=== PATIENT | male | born 1965 | race Caucasian/White ===

== ENCOUNTER → 2018-05-16 10:51 | Outpatient (REF) | payer BC, SELFPAY ==
[2018-05-16 20:31] LABS: HCT 47.4 % (40.0-50.0); HGB 15.6 g/dL (13.5-17.5)
[2018-05-16 20:46] LABS: ALT 42 U/L (12-78); AST 25 U/L (15-37); Albumin 4.5 g/dL (3.4-5.0); Alkaline Phosphatase 50 U/L (46-116); Anion Gap 7.2 mmol/L (3-11); BUN 8 mg/dL (7-18); Bilirubin, Total 1.2 mg/dL (0.2-1.0); CO2 28.8 mmol/L (21.0-32.0); Calcium 9.2 mg/dL (8.5-10.1); Chloride 104 mmol/L (98-107); Cholesterol 191 mg/dL (50-200); Glucose 92 mg/dL (70-100); HDL Cholesterol 43 mg/dL (40-60); LDL CHOLESTEROL 115 mg/dL (<100); Potassium 4.8 mmol/L (3.5-5.1); Sodium 140 mmol/L (136-145); TSH (W/Ref FT4) 0.48 uIU/mL (0.358-3.74); Total Protein 7.3 g/dL (6.4-8.2); Triglyceride 249 mg/dL (30-150)
== END ==
LOC: NCHCN 10:51
PROVIDERS: PCP Family Medicine; Visit Provider Family Medicine
DX: D64.9 Anemia, unspecified (principal); E78.5 Hyperlipidemia, unspecified; I10 Essential (primary) hypertension; E03.9 Hypothyroidism, unspecified
CPT/HCPCS: 80053; 80061; 83721; 84443; 85014; 85018

== ENCOUNTER 2018-07-27 10:43 | Emergency (ER) | payer BC, SELFPAY ==
[2018-07-27 11:02] VITALS: BP 141/98; PULSE 63; RESP 18; TEMP 36.6; O2SAT 99
[2018-07-27 11:09] VITALS: BP 141/98; PULSE 66; RESP 16; TEMP 36.6; O2SAT 99
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
[2018-07-27 11:48] LABS: Bilirubin Negative (Negative); Blood Negative (Negative); Clarity Clear; Glucose Negative (Negative); Ketones Negative (Negative); Leukocyte Esterase Negative (Negative); Nitrite Negative (Negative); Urobilinogen 0.2 EU/dL (Up TO 0.2)
[2018-07-27] MEDS: Normal Saline 1,000 ML 1000 ML IV (12:00)
[2018-07-27 12:11] LABS: Abs Immature Grans 0.01 k/cumm (0.0-0.09); Absolute Basophil Count 0.02 k/cumm (0.0-0.2); Absolute Eosinophil Count 0.06 k/cumm (0.0-0.7); Absolute Lymphocyte Count 1.34 k/cumm (1.2-3.4); Absolute Monocyte Count 0.32 k/cumm (0.11-0.7); Absolute Neutrophil Count 3.95 k/cumm (1.2-6.7); Basophils % 0.4; Eosinophils % 1.1; HCT 46.8 % (40.0-50.0); HGB 15.7 g/dL (13.5-17.5); Immature Grans % 0.2; Lymphocytes % 23.5; Mean Corp. HGB Concentration 33.5 g/dL (32.0-36.0); Mean Corpuscular Hemoglobin 30.8 pg (27.0-33.0); Mean Corpuscular Volume 91.8 fL (80-95); Mean Platelet Volume 11.5 fL (8.0-11.0); Monocytes % 5.6; Neutrophils % 69.2; Platelet Count 181 x1000/uL (130-400); RBC Distribution Width 12.8 % (11.8-14.1)
[2018-07-27 12:23] LABS: ALT 54 U/L (12-78); AST 25 U/L (15-37); Albumin 4.4 g/dL (3.4-5.0); Alkaline Phosphatase 49 U/L (46-116); Anion Gap 11.7 mmol/L (3-11); BUN 10 mg/dL (7-18); Bilirubin, Total 1.3 mg/dL (0.2-1.0); CO2 26.3 mmol/L (21.0-32.0); CREATININE 1.06 mg/dL (0.70-1.30); Calcium 9.3 mg/dL (8.5-10.1); Chloride 101 mmol/L (98-107); Glucose 89 mg/dL (70-100); Lipase 131 U/L (73-393); Potassium 3.7 mmol/L (3.5-5.1); Sodium 139 mmol/L (136-145); Total Protein 7.3 g/dL (6.4-8.2)
[2018-07-27] MEDS: Omnipaque 350 MG/ML 100 ML BTL IJ (13:02)
--- NOTE | 2018-07-27 13:03 | DI.CT_ITS ---
SYMPTOM/DIAGNOSIS: ABD PAIN ABDOMEN AND PELVIC CT: CT examination of the abdomen and pelvis was performed with a bolus infusion of 100 cc's of Omnipaque 350. Images obtained through the lung bases are unremarkable. The liver and spleen are unremarkable in appearance. No pancreatic abnormality is seen. Gallbladder and bile ducts are CT normal. Adrenals and kidneys appear normal. No evidence of urinary tract calcification or obstruction. No significant abdominal wall hernia is seen. No abdominal or pelvic adenopathy is seen. Appendix appears normal. No evidence of diverticulitis or bowel obstruction. Abdominal aorta is of normal diameter and no major vascular abnormality is seen. Note is made of surgical clips in the pelvis on the right. CONCLUSION: No evidence of acute process.
[2018-07-27 13:54] VITALS: BP 142/93; PULSE 71; RESP 15; TEMP 37; O2SAT 99
== END 2018-07-27 13:55 | disposition home or self-care (01) ==
PROVIDERS: Emergency Provider Physician Assistant; PCP Family Medicine
DX: R10.9 Unspecified abdominal pain (principal); I48.91 Unspecified atrial fibrillation
CPT/HCPCS: 36415; 80053; 83690; 93005; 96360; 99285; 74177; 81003; 85025; 93010; J3490

== ENCOUNTER 2018-08-07 07:34 | Day surgery (SDC) | payer BC, SELFPAY ==
[2018-08-07] VITALS (7 sets, daily range): BP systolic 101–149; BP diastolic 57–102; PULSE 73–96; RESP 11–18; TEMP 36.2–36.7; O2SAT 94–99
--- NOTE | 2018-08-07 07:48 | W.ED.GENAD ---
Discharge Plan Disposition Condition: Good Discharge Details Chief Complaint: Abd Prob Reason For Visit: Incarcerated Left Inguinal hernia Attending Provider: Mehran Lewis Primary Care Provider: China Kim V ED Provider: Aida Saldivar Discharge Instructions Activity:: see instructions Remove Dressings/Wound Care:: 24 hours Shower/Bathe:: 24 hours Diet:: As Tolerated Discharge Orders Discharge Orders: Discharge Order (Routine); Ordered 08/07/18 Ordered By: Mehran Lewis Discharge Data Discharge Date/Time-TO BE ENTERED AT DEPARTURE: 08/07/18 08:55 Medical Decision Making Ulisses Balderrama is a 53 y/o man with h/o HTN, hypothyroidism, afib presenting to the emergency department with one month of suprapubic pain, now left groin pain with associated bulge intermittently in the left groin over the past few days. On exam Pt is very well and non-toxic appearing. Abd exam is benign without TTP. No hernia appreciated, no TTP of groin. Pt took picture of groin bulge last night on his phone, which he showed to me. Concern for likely hernia, now reduced, unclear if this is etiology of constipation at this time. Exam/hx not c/w acute life threatening process. Plan for surgery consult for hernia, possible outpt colonoscopy. Will send screening labs. Dr. Lewis at bedside, he has concern for possible incarcerated hernia and plans to take Pt to OR. He requests lactate. Clinical Impression: hernia, constipation Disposition: [facility] inpatient Medical Records Medical records reviewed: Yes I reviewed the patient's medical records. Lab Data Lab results reviewed: Yes I reviewed the patient's lab results. HPI General Mode of arrival: ambulatory. Date/Time Provider Initiated Documentation: 08/07/18 07:48. Limitations to Documentation: no limitations. Information obtained by: patient, RN notes reviewed and old records reviewed. HPI Narrative: Ulisses Balderrama is a 53 y/o man with h/o HTN, hypothyroidism, afib presenting to the emergency department with suprapubic pain. Pt reports he has been having this pain for one month. Over that same period has also had new constipation and change in the caliber of his stools, which are now very thin in diameter. He was seen here in the ED for this 07/27/18, where he had negative CT a/p. He also saw Dr. Lewis as outpt in f/u for ED visit, during which source of his symptoms was thought to be at least partially related to prostate enlargement, and he was started on tamulosin. Pt reports that over the past few days pain has become more localized to left groin, and he has also now noticed an intermittent bulge in that area. Pt reports bulge was worse last night, improved this am. He reports that his constipation has not improved despite taking miralax and metamucil. He states that otherwise he feels in his usual state of health. He denies other pain, SOB, cough, nausea or vomiting, dysuria, testicular pain/swelling, fever. Has been eating and drinking as usual. No recent illness. Related Data Home Medications Medication Instructions Recorded Confirmed aspirin [Aspir-81] 81 mg PO DAILY tab-cap 07/05/14 08/07/18 losartan 50 mg PO DAILY 08/05/14 08/07/18 verapamil 400 mg PO DAILY 08/05/14 08/07/18 levothyroxine 200 mcg PO DAILY 07/27/18 08/07/18 rosuvastatin 5 mg PO DAILY 07/27/18 08/07/18 tamsulosin 0.4 mg capsule 0.4 mg PO DAILY #30 cap 08/02/18 08/07/18 acetaminophen [Tylenol] 650 mg PO Q4H PRN PRN #30 tab 08/07/18 ibuprofen [Advil] 600 mg PO Q6H PRN PRN #30 tab 08/07/18 tramadol 50 mg PO Q6H PRN PRN #15 tab 08/07/18 Previous Rx's Medication Instructions Recorded tamsulosin 0.4 mg capsule 0.4 mg PO DAILY #30 cap 08/02/18 acetaminophen [Tylenol] 650 mg PO Q4H PRN PRN #30 tab 08/07/18 ibuprofen [Advil] 600 mg PO Q6H PRN PRN #30 tab 08/07/18 tramadol 50 mg PO Q6H PRN PRN #15 tab 08/07/18 Allergies Allergy/AdvReac Type Severity Reaction Status Date / Time No Known Allergies Allergy Verified 08/02/18 09:04 General Stated Complaint: Abd Prob JENNIFER: 3 Review of Systems Review of Systems Constitutional: denies fevers Eyes: denies eye pain ENT: denies facial pain, dental pain, sore throat Cardiovascular: denies chest pain, edema Respiratory: denies SOB, cough GI: reports lower abdominal pain, constipation, denies vomiting, diarrhea : denies flank pain, denies dysuria MSK: denies back pain, neck pain, arthralgias, myalgias Skin: denies rash Neuro: denies headaches, lightheadedness, weakness PFSH Family History Mother Heart disease COPD (chronic obstructive pulmonary disease) Father Personal history of malignant neoplasm Heart disease Sister Arthritis Hyperlipidemia Brother Atrial fibrillation Asthma Brother Hypothyroidism Medical History Atrial fibrillation Hypertension Hypothyroidism Migraine Social History Smoking/Tobacco Use Status: Never alcohol intake: current alcohol intake frequency: holidays/special occasions only Alcohol type: beer and wine substance use type: does not use Surgical History Laparotomy Pelvic vasculature coiling Exam Narrative Exam Narrative: Constitutional: well and [id number], pleasant, conversing normally HENT: head atraumatic, normocephalic normal inspection, mucous membranes moist Eyes: conjunctiva normal, sclera normal, pupils 3mm b/l Neck: no stridor, normal ROM, trachea midline Chest: normal inspection Resp: normal work of breathing, LCTAB Cardio: normal rate, normal rhythm, no murmur appreciated GI: abdomen soft, non-tender, non-distended. no hernia appreciated in supine or standing position. left inguinal NTTP. No overlying skin changes. Pt does note sudden sharp pain with standing that resolves with lying flat. : normal penis, testicles NTTP without edema or skin changes, no inguinal LAD Back: normal inspection, no rash Skin: warm, dry, normal color, no rash Neuro: alert, not altered, grossly non-focal, normal tone Ext: no edema Psych: normal mood, normal affect, normal behavior Course Vital Signs Temperature 36.7 C 08/07/18 07:41 Pulse 76 08/07/18 07:41 Respiratory Rate 18 08/07/18 07:41 Blood Pressure 149/102 H 08/07/18 07:41 Pulse Oximetry 99 08/07/18 07:41 Temperature 36.7 C 08/07/18 07:41 Temperature Source Temporal Artery Scan 08/07/18 07:41 Pulse 76 08/07/18 07:41 Respiratory Rate 18 08/07/18 07:41 Respiratory Effort 08/07/18 07:43 Blood Pressure 149/102 H 08/07/18 07:41 Blood Pressure Position Sitting 08/07/18 07:41 Pulse Oximetry 99 08/07/18 07:41 Oxygen Delivery Method Room Air 08/07/18 07:41 Oxygen Flow Rate 0 08/07/18 07:41 Pain Level 4 08/07/18 07:41
--- NOTE | 2018-08-07 07:54 | ED.GENADUL_ITS ---
Discharge Plan Disposition Condition: Good Discharge Details Chief Complaint: Abd Prob Reason For Visit: Incarcerated Left Inguinal hernia Attending Provider: Mehran Lewis Primary Care Provider: China Kim V ED Provider: Aida Saldivar Discharge Instructions Activity:: see instructions Remove Dressings/Wound Care:: 24 hours Shower/Bathe:: 24 hours Diet:: As Tolerated Discharge Orders Discharge Orders: Discharge Order (Routine); Ordered 08/07/18 Ordered By: Mehran Lewis Discharge Data Discharge Date/Time-TO BE ENTERED AT DEPARTURE: 08/07/18 08:55 Medical Decision Making Ulisses Balderrama is a 53 y/o man with h/o HTN, hypothyroidism, afib presenting to the emergency department with one month of suprapubic pain, now left groin pain with associated bulge intermittently in the left groin over the past few days. On exam Pt is very well and non-toxic appearing. Abd exam is benign without TTP. No hernia appreciated, no TTP of groin. Pt took picture of groin bulge last night on his phone, which he showed to me. Concern for likely hernia, now reduced, unclear if this is etiology of constipation at this time. Exam/hx not c /w acute life threatening process. Plan for surgery consult for hernia, possible outpt colonoscopy. Will send screening labs. Dr. Lewis at bedside, he has concern for possible incarcerated hernia and plans to take Pt to OR. He requests lactate. Clinical Impression: hernia, constipation Disposition: [facility] inpatient Medical Records Medical records reviewed: Yes I reviewed the patient's medical records. Lab Data Lab results reviewed: Yes I reviewed the patient's lab results. HPI General Mode of arrival: ambulatory . Date/Time Provider Initiated Documentation: 08/07/18 07:48 . Limitations to Documentation: no limitations . Information obtained by: patient, RN notes reviewed and old records reviewed . HPI Narrative: Ulisses Balderrama is a 53 y/o man with h/o HTN, hypothyroidism, afib presenting to the emergency department with suprapubic pain. Pt reports he has been having this pain for one month. Over that same period has also had new constipation and change in the caliber of his stools, which are now very thin in diameter. He was seen here in the ED for this 07/27/18, where he had negative CT a/p. He also saw Dr. Lewis as outpt in f/u for ED visit, during which source of his symptoms was thought to be at least partially related to prostate enlargement, and he was started on tamulosin. Pt reports that over the past few days pain has become more localized to left groin, and he has also now noticed an intermittent bulge in that area. Pt reports bulge was worse last night, improved this am. He reports that his constipation has not improved despite taking miralax and metamucil. He states that otherwise he feels in his usual state of health. He denies other pain, SOB, cough, nausea or vomiting, dysuria, testicular pain/swelling, fever. Has been eating and drinking as usual. No recent illness. Related Data Home Medications Medication Instructions Recorded Confirmed aspirin [Aspir-81] 81 mg PO DAILY tab-cap 07/05/14 08/07/18 losartan 50 mg PO DAILY 08/05/14 08/07/18 verapamil 400 mg PO DAILY 08/05/14 08/07/18 levothyroxine 200 mcg PO DAILY 07/27/18 08/07/18 rosuvastatin 5 mg PO DAILY 07/27/18 08/07/18 tamsulosin 0.4 mg capsule 0.4 mg PO DAILY #30 cap 08/02/18 08/07/18 acetaminophen [Tylenol] 650 mg PO Q4H PRN PRN #30 tab 08/07/18 ibuprofen [Advil] 600 mg PO Q6H PRN PRN #30 tab 08/07/18 tramadol 50 mg PO Q6H PRN PRN #15 tab 08/07/18 Previous Rx's Medication Instructions Recorded tamsulosin 0.4 mg capsule 0.4 mg PO DAILY #30 cap 08/02/18 acetaminophen [Tylenol] 650 mg PO Q4H PRN PRN #30 tab 08/07/18 ibuprofen [Advil] 600 mg PO Q6H PRN PRN #30 tab 08/07/18 tramadol 50 mg PO Q6H PRN PRN #15 tab 08/07/18 Allergies Allergy/AdvReac Type Severity Reaction Status Date / Time No Known Allergies Allergy Verified 08/02/18 09:04 General Stated Complaint: Abd Prob JENNIFER: 3 Review of Systems Review of Systems Constitutional: denies fevers Eyes: denies eye pain ENT: denies facial pain, dental pain, sore throat Cardiovascular: denies chest pain, edema Respiratory: denies SOB, cough GI: reports lower abdominal pain, constipation, denies vomiting, diarrhea : denies flank pain, denies dysuria MSK: denies back pain, neck pain, arthralgias, myalgias Skin: denies rash Neuro: denies headaches, lightheadedness, weakness PFSH Family History Mother Heart disease COPD (chronic obstructive pulmonary disease) Father Personal history of malignant neoplasm Heart disease Sister Arthritis Hyperlipidemia Brother Atrial fibrillation Asthma Brother Hypothyroidism Medical History Atrial fibrillation Hypertension Hypothyroidism Migraine Social History Smoking/Tobacco Use Status: Never alcohol intake: current alcohol intake frequency: holidays/special occasions only Alcohol type: beer and wine substance use type: does not use Surgical History Laparotomy Pelvic vasculature coiling Exam Narrative Exam Narrative: Constitutional: well and [id number], pleasant, conversing normally HENT: head atraumatic, normocephalic normal inspection, mucous membranes moist Eyes: conjunctiva normal, sclera normal, pupils 3mm b/l Neck: no stridor, normal ROM, trachea midline Chest: normal inspection Resp: normal work of breathing, LCTAB Cardio: normal rate, normal rhythm, no murmur appreciated GI: abdomen soft, non-tender, non-distended. no hernia appreciated in supine or standing position. left inguinal NTTP. No overlying skin changes. Pt does note sudden sharp pain with standing that resolves with lying flat. : normal penis, testicles NTTP without edema or skin changes, no inguinal LAD Back: normal inspection, no rash Skin: warm, dry, normal color, no rash Neuro: alert, not altered, grossly non-focal, normal tone Ext: no edema Psych: normal mood, normal affect, normal behavior Course Vital Signs Temperature 36.7 C 08/07/18 07:41 Pulse 76 08/07/18 07:41 Respiratory Rate 18 08/07/18 07:41 Blood Pressure 149/102 H 08/07/18 07:41 Pulse Oximetry 99 08/07/18 07:41 Temperature 36.7 C 08/07/18 07:41 Temperature Source Temporal Artery Scan 08/07/18 07:41 Pulse 76 08/07/18 07:41 Respiratory Rate 18 08/07/18 07:41 Respiratory Effort 08/07/18 07:43 Blood Pressure 149/102 H 08/07/18 07:41 Blood Pressure Position Sitting 08/07/18 07:41 Pulse Oximetry 99 08/07/18 07:41 Oxygen Delivery Method Room Air 08/07/18 07:41 Oxygen Flow Rate 0 08/07/18 07:41 Pain Level 4 08/07/18 07:41
[2018-08-07 08:40] LABS: Abs Immature Grans 0.01 k/cumm (0.0-0.09); Absolute Basophil Count 0.02 k/cumm (0.0-0.2); Absolute Eosinophil Count 0.09 k/cumm (0.0-0.7); Absolute Lymphocyte Count 1.28 k/cumm (1.2-3.4); Absolute Neutrophil Count 2.53 k/cumm (1.2-6.7); Basophils % 0.5; Eosinophils % 2.1; HCT 46.1 % (40.0-50.0); HGB 15.6 g/dL (13.5-17.5); Immature Grans % 0.2; Lymphocytes % 30.3; Mean Corp. HGB Concentration 33.8 g/dL (32.0-36.0); Mean Corpuscular Volume 91.7 fL (80-95); Mean Platelet Volume 11.1 fL (8.0-11.0); Monocytes % 7.1; Neutrophils % 59.8; Platelet Count 159 x1000/uL (130-400); RBC 5.03 m/cumm (4.50-6.00); RBC Distribution Width 12.6 % (11.8-14.1); White Blood Cell Count 4.23 k/cumm (4.4-10.8)
[2018-08-07 08:53] LABS: Bilirubin Negative (Negative); Blood Negative (Negative); Clarity Clear; Glucose Negative (Negative); Ketones Negative (Negative); Leukocyte Esterase Negative (Negative); Nitrite Negative (Negative); Specific Gravity <= 1.005 (1.005-1.025); Urobilinogen 0.2 EU/dL (Up TO 0.2); pH 6.5 (5-8)
[2018-08-07 09:03] LABS: Anion Gap 10.9 mmol/L (3-11); BUN 14 mg/dL (7-18); CO2 25.1 mmol/L (21.0-32.0); CREATININE 1.04 mg/dL (0.70-1.30); Calcium 9.5 mg/dL (8.5-10.1); Chloride 103 mmol/L (98-107); Glucose 98 mg/dL (70-100); Potassium 4.1 mmol/L (3.5-5.1); Sodium 139 mmol/L (136-145); TSH (W/Ref FT4) 0.24 uIU/mL (0.358-3.74)
[2018-08-07 09:09] LABS: Lactate-non-spesis 0.8 mmol/L (0.6-1.4)
[2018-08-07 09:22] LABS: FREE T4 1.41 ng/dL (0.76-1.46)
[2018-08-07] MEDS: Lactated Ringers 1,000 ML 80 ML IV (09:37)
--- NOTE | 2018-08-07 10:18 | HERN_PTH ---
PATIENT: Ulisses Balderrama LOC: [facility] U#:[id number] AGE/SX: 53/M ROOM: RE08/07/[address]: Mehran Lewis DO : 1965 BED: DIS: 08/07/2018 SPEC #: [id number] RECD: 08/07/18 12:47 STATUS: BIN REQ #: [id number] FUNMILAYO: 08/07/18 10:[address]: Mehran Lewis DEPT: Surgical Specimen RECD BY: Nadege Lr ENTERED: 08/07/18 12:48 SP TYPE: Hernia Sac OTHR DR: China Kim V Tissues: 1 - HERNIA SAC, INGUINAL Procedures: GROSS LEVEL 1 Comments: [id number]
[2018-08-07] MEDS: Lidocaine 1% Pres-Free 5 ML VIAL (10:20)
--- NOTE | 2018-08-07 13:08 | W.PM.HP.N ---
Date of service: 08/07/18 Time of Service: 08:15 Assessment and Plan (1) Incarcerated left inguinal hernia: Start date: 08/06/18 Start time: 20:00 Current visit: Yes Status: Acute Physical findings and symptoms consistent with incarcrated left inguinal hernia. Recommended urgent open repair of this hernia. I discussed the risks of the surgery with , and I reviewed the hernia repair procedure with him. All his questions were answered to his satisfaction. No promises were given, or guarantees made. Consent was obtaine to proceed with open inguinal hernia repair. History of Present Illness Chief Complaint: Left groin pain Narrative: 53-year-old male well-known to me from prior encounters, he presented to the emergency room today with less than 24 hours of rapid onset left groin pain. He describes the pain as sharp burning nonradiating his left groin. He has an associated lump there that he noticed last night with the onset of the worsening pain. The bulge does get smaller when he lays flat on his back and the pain improves, but it does not resolve completely. He has had intermittent pain like this for several weeks, but again, the pain onset and did not resolve. Review of Systems Review of Systems All systems reviewed & are unremarkable except as noted in HPI and below Constitutional Denies anorexia, Denies chills, Reports difficulty sleeping, Denies fatigue, Denies fever(s), Denies headache(s), Reports malaise, Denies night sweats and Reports poor appetite ENT Denies headache(s) Cardiovascular Denies chest pain with activity, Denies syncope, Denies rapid heart rate, Denies leg edema, Denies lightheadedness, Denies radiating jaw, neck or arm pain and Denies dyspnea Respiratory Denies chest congestion, Denies cough, Denies dyspnea and Denies wheezing Gastrointestinal Reports abdominal pain, Reports change in bowel habits, Reports constipation, Denies nausea and Denies vomiting Genitourinary Reports urinary frequency, Reports urinary hesitancy, Denies urinary incontinence and Reports urinary urgency Neurologic Denies syncope and Denies headache(s) Endocrine Denies fatigue Allergic/Immunologic Denies wheezing PFSH Family History Mother Heart disease COPD (chronic obstructive pulmonary disease) Father Personal history of malignant neoplasm Heart disease Sister Arthritis Hyperlipidemia Brother Atrial fibrillation Asthma Brother Hypothyroidism Medical History Atrial fibrillation Hypertension Hypothyroidism Migraine Social History Smoking/Tobacco Use Status: Never alcohol intake: current alcohol intake frequency: holidays/special occasions only Alcohol type: beer and wine substance use type: does not use Surgical History Laparotomy Pelvic vasculature coiling Meds Home Medications Medication Instructions Recorded Confirmed Type aspirin [Aspir-81] 81 mg PO DAILY tab-cap 07/05/14 08/07/18 History losartan 50 mg PO DAILY 08/05/14 08/07/18 History verapamil 400 mg PO DAILY 08/05/14 08/07/18 History levothyroxine 200 mcg PO DAILY 07/27/18 08/07/18 History rosuvastatin 5 mg PO DAILY 07/27/18 08/07/18 History tamsulosin 0.4 mg capsule 0.4 mg PO DAILY #30 cap 08/02/18 08/07/18 Rx acetaminophen [Tylenol] 650 mg PO Q4H PRN PRN #30 tab 08/07/18 Rx ibuprofen [Advil] 600 mg PO Q6H PRN PRN #30 tab 08/07/18 Rx tramadol 50 mg PO Q6H PRN PRN #15 tab 08/07/18 Rx Allergies Allergy/AdvReac Type Severity Reaction Status Date / Time No Known Allergies Allergy Verified 08/02/18 09:04 Exam Const General: cooperative, healthy appearing and in distress mild Nutritional Appearance: average body habitus and well nourished Orientation: alert, awake and oriented x3 HENMT Head: normal to inspection, normocephalic and atraumatic Ears: hearing grossly normal bilaterally General nose exam: external nose normal Face and sinus: normal facial exam Mouth: oral mucosae normal Throat: other (Mallampati class II) Eyes General: appearance normal, both eyes and all related structures Periorbital: periorbital findings normal Sclera: sclerae normal Pupils: PERRL EOM: EOM intact bilaterally Neck Neck: normal visual inspection, trachea midline and supple Resp Effort & Inspection: normal respiratory effort, no audible wheezes and not labored Auscultation: clear to auscultation bilaterally Cardio Jugular venous pressure: no JVD Rate: tachycardic Rhythm: regular rhythm GI Inspection: non-distended and scar (midline scar without signs of hernia) Palpation: soft, no guarding, hernia indirect inguinal on the left (incarcerated) and tender in the LLQ Rectal Exam: deferred Skin General skin exam: no rashes or lesions noted and turgor normal Neuro General: moves all extremities, no focal motor deficits and CN's II-XI intact bilaterally Extrem General: normal capillary refill and no clubbing, cyanosis or edema Psych Mental Status: mental status grossly normal Mood: congruent mood Affect: normal affect Thought Process: normal Thought Content: normal Judgment: judgment good Results Labs : 08/07/18 08:33 08/07/18 08:33 Laboratory Results - last 24 hr 08/07/18 08/07/18 08/07/18 08:33 08:33 08:45 WBC 4.23 L RBC 5.03 Hgb 15.6 Hct 46.1 MCV 91.7 MCH 31.0 MCHC 33.8 RDW 12.6 Plt Count 159 MPV 11.1 H Immature Gran % 0.2 Neutrophils % 59.8 Lymphocytes % 30.3 Monocytes % 7.1 Eosinophils % 2.1 Basophils % 0.5 Absolute Neutrophils 2.53 Absolute Lymphocytes 1.28 Absolute Monocytes 0.30 Absolute Eosinophils 0.09 Absolute Basophils 0.02 Sodium 139 Potassium 4.1 Chloride 103 Carbon Dioxide 25.1 Anion Gap 10.9 BUN 14 Creatinine 1.04 Estimated GFR/1.73 m2 >= 60.00 Glucose 98 Lactate Calcium 9.5 TSH 0.24 L Free T4 1.41 Urine Color Yellow Urine Clarity Clear Urine pH 6.5 Ur Specific [place] <= 1.005 Urine Protein Negative Urine Ketones Negative Urine Blood Negative Urine Nitrite Negative Urine Bilirubin Negative Urine Urobilinogen 0.2 Ur Leukocyte Esterase Negative Urine Glucose Negative 08/07/18 09:00 WBC RBC Hgb Hct MCV MCH MCHC RDW Plt Count MPV Immature Gran % Neutrophils % Lymphocytes % Monocytes % Eosinophils % Basophils % Absolute Neutrophils Absolute Lymphocytes Absolute Monocytes Absolute Eosinophils Absolute Basophils Sodium Potassium Chloride Carbon Dioxide Anion Gap BUN Creatinine Estimated GFR/1.73 m2 Glucose Lactate 0.8 Calcium TSH Free T4 Urine Color Urine Clarity Urine pH Ur Specific [place] Urine Protein Urine Ketones Urine Blood Urine Nitrite Urine Bilirubin Urine Urobilinogen Ur Leukocyte Esterase Urine Glucose Last Vital Signs Temp 36.2 C L 08/07/18 12:45 Pulse 75 08/07/18 12:45 Resp 16 08/07/18 12:45 BP 109/66 11/05/18 12:45 Pulse Ox 96 08/07/18 12:45
--- NOTE | 2018-08-07 13:32 | ROE_ITS ---
Date of service: 08/07/18 Time of Service: 09:00 Operative Note DATE OF PROCEDURE: 08/07/18 PRE-OP DIAGNOSIS: Incarcerated left inguinal hernia POST-OP DIAGNOSIS: other (Incarcerated Left indirect inguinal hernia) PROCEDURE: Open repair left indirect inguinal hernia with Mesh SURGEON: Mehran Lewis HOSTAGE NEGOTIATOR: Noah Mcgill ANESTHESIA: GETA ([place], RECORD PRESS TENDER: ASA 2e Mallampati class II) ESTIMATED BLOOD LOSS: 5 PATHOLOGY: other (Hernia Sack) COMPLICATIONS: None Patient was transported to: PACU Patient's condition: stable Implants: [employer] Progrip Mesh Lot # [id number] Indications: 53-year-old male well-known to me from prior encounters, he presented to the emergency room today with less than 24 hours of rapid onset left groin pain. He describes the pain as sharp burning nonradiating his left groin. He has an associated lump there that he noticed last night with the onset of the worsening pain. The bulge does get smaller when he lays flat on his back and the pain improves, but it does not resolve completely. He has had intermittent pain like this for several weeks, but again, the pain onset and did not resolve. Physical examination was consistent with an incarcerated inguinal hernia. It was recommended he undergo urgent repair of incarcerated left inguinal hernia. The procedure was reviewed with him and its risks discussed. All his questions were answered to his satisfaction, and consent was obtained to proceed. No promises were given or guarantees made Findings: In examining the left inguinal canal a indirect inguinal hernia sac was identified with associated cord lipoma. The contents of the hernia sac had reduced upon induction of anesthesia; the hernia sac was subsequently suture ligated along with the cord lipoma, and the hernia defect was repaired with mesh. Procedure Description: The patient was brought to the operating room. A time-out was completed verifying correct patient , procedure, site , allergies, medications, positioning, implants, and fire risk, prior to beginning the procedure. General anesthesia was induced. The left groin was prepped with chloraprep, and draped in the standard sterile fashion. The pubic tubercle, and anterior superior iliac spine (ASIS) were marked. A skin incision was marked starting just laterally to the pubic tubercle in a linear oblique fashion toward the ASIS. A field block was produced by injecting local along the proposed skin incision. Additional local anesthesia was injected during the procedure under the external oblique aponeurosisto , just medial to the ASIS, to block the ilioinguinal nerve. Addition local was injected as needed during the case. I began by incising the previously marked incision line with a scalpel. The incision was deepened though Mabel's and Camper's fascia with electocautery down until the aponeurosis of the external oblique was encountered. This was cleaned and the external ring exposed. Hemostasis was obtained in the wound with cautery. A stab incision was made in the midportion of the external oblique aponeurosis in the parallel to the fibers. Flaps of the external oblique were developed cephalad, and inferiorly. The cord was identified, gently dissected at the pubic tubercle, and encircled with a gilles drain, The cord was then explored, the vas deferens, and testicular vesicles were protected a indirect hernia sac was found anteromedially to the cord, which was subsequently dissected, twisted, and suture ligated after its contents were reduced The redundant sac was sent for pathology, and the remainder reduced. The femoral canal was palpated and no hernia was identified. I then placed a mesh to re-enforce the floor of the left inguinal canal, and create a new internal ring. The floor of the left inguinal canal was cleaned medially over the pubic tubercle, cephalad over the conjoint tendon, laterally over the aponeurosis of the internal oblique, and inferiorly the inguinal ligament. A mesh was then laid in the floor of the canal with the mesh overlying the pubic tubercle medially, conjoint tendon cephalad, internal oblique aponeurosis laterally, and shelving edge of inguinal ligament inferiorly. The mesh was then inspected for apposition to the tissue, and pressed into place. The tip of a Debakey forceps easily passed through the new internal ring next the cord structures. The wound was then irrigated. Hemostasis again checked, and gilles drain removed. I closed the wound in layers, with 2-0 vicryl for the external oblique in a running fashion, 3-0 vicryl to approximate Mabel's fascia, and the skin was closed with 4-0 vicryl with a running subcuticular fashion. A dressing was applied. The count was reported correct times two. No apparent complications during the case. The patient was brought to the PACU in good condition.
--- NOTE | 2018-08-07 15:52 | W.PM.DSUDISC ---
Discharge Plan Disposition Patient Disposition: HOME Condition: Good Discharge Details Chief Complaint: Abd Prob Reason For Visit: Incarcerated Left Inguinal hernia Attending Provider: Mehran Lewis Primary Care Provider: China Kim V ED Provider: Aida Saldivar Home Meds and New Rx's Prescriptions: New acetaminophen [Tylenol] 325 mg Tablet 650 mg PO Q4H PRN PRNQty: 30 RF: 0 tramadol 50 mg Tablet 50 mg PO Q6H PRN PRNQty: 15 RF: 0 ibuprofen [Advil] 200 mg Tablet 600 mg PO Q6H PRN PRNQty: 30 RF: 0 Continue tamsulosin [Flomax] 0.4 mg capsule 0.4 mg PO DAILY Qty: 30 RF: 0 aspirin [Aspir-81] 81 MG tablet,delayed release (DR/EC) 81 mg PO DAILY RF: 0 losartan 50 MG tablet 50 mg PO DAILY RF: 0 verapamil 200 MG capsule, [address] 400 mg PO DAILY RF: 0 levothyroxine 200 mcg Tablet 200 mcg PO DAILY RF: 0 rosuvastatin 5 mg Tablet 5 mg PO DAILY RF: 0 Discharge Instructions Instructions: Inguinal Hernia Repair (DC) Additional Instructions: General Surgery Discharge Information Discharge Activities: 1. Continue incentive spirometry 10-15 times~every hour while awake and as tolerated 2. Ambulate at least 3 times a day for 15 minutes and as tolerated 3. Out of bed at least 3 times a day for 2 hours at a time, and as tolerated 4. You can shower, pat wounds dry, do not rub Restrictions: 1. No heavy lifting, pulling, or pushing over 20 pounds for 6 weeks, no strenuous bending or twisting. 2. No swimming, baths, or immersion of wounds in water for 2weeks. If you are having fever, chills, nausea, vomiting, pain not controlled with pain medications, bleeding or drainage from your wounds. Call [phone] or [phone] (after hours). I understand the above instructions and have no questions. Signature of Patient or Responsible Adult Escort Date/Time Name of Responsible Adult Escort Sugnature of Nurse Date/Time Stand Alone Forms: DSU Post op Instructions Referrals: Mehran Lewis DO [ [facility] STAFF PHYSICIAN] - 08/23/18 9:30 am (Follow up after inguinal hernia) Activity:: see instructions Remove Dressings/Wound Care:: 24 hours Shower/Bathe:: 24 hours Diet:: As Tolerated Discharge Orders Discharge Orders: Discharge Order (Routine); Ordered 08/07/18 Ordered By: Mehran Lewis Discharge Data Discharge Date/Time-TO BE ENTERED AT DEPARTURE: 08/07/18 13:49 Discharge Comment: with DS: Diagnosis Discharge Diagnosis (1) Incarcerated left inguinal hernia: Start date: 08/06/18 Start time: 20:00 Status: Acute Asessment and Plan: Open repair of left incarcerated inguinal hernia.
== END 2018-08-07 13:49 | disposition home or self-care (01) ==
LOC: ER 08:42 → SUR 08:55
PROVIDERS: Emergency Provider Student in an Organized Health Care Education/Training Program; PCP Family Medicine; Visit Provider Surgery
PROC: (CPT 49505; principal; 2018-08-07 10:00)
DX: K40.30 Unilateral inguinal hernia, with obstruction, without gangrene, not specified as recurrent (principal); I10 Essential (primary) hypertension
CPT/HCPCS: 49505; 36415; 80048; 88300; 99223; 99285; 81003; 83605; 84439; 84443; 85025; 99284; C1781; J0131; J0690; J1100; J1885; J2250; J2405

== ENCOUNTER 2018-11-30 01:01 | Outpatient (CLI) | payer BC, SELFPAY ==
--- NOTE | 2018-11-30 10:16 | MERGE_ITS ---
*[facility]* *[facility]* [address] [place] [address] Date of study: 11/30/2018 Transthoracic Echocardiography M-mode, complete 2D, complete spectral Doppler, and color Doppler *STUDY CONCLUSIONS* Summary: 1. Left ventricle: The cavity size was normal. Wall thickness was increased in a pattern of mild LVH. Systolic function was normal. The estimated ejection fraction was 60-65%. Diastolic parameters were normal. There was no evidence of elevated ventricular filling pressure by Doppler parameters. 2. Mitral valve: There was moderate regurgitation. 3. Left atrium: The atrium was mildly dilated. 4. Right ventricle: The cavity size was normal. Wall thickness was normal. Systolic function was normal. 5. Right atrium: The atrium was mildly dilated. 6. Atrial septum: No defect or patent foramen ovale was identified. 7. Pulmonary arteries: Pulmonary systolic pressure was in the range of 25mm Hg to 35mm Hg. 8. Inferior vena cava: The vessel was patent and normal in size. The respirophasic diameter changes were in the normal range (greater than or equal to 50%), consistent with normal central venous pressure. *PATIENT PRESENTATION* Height: 188cm ((74in) ) S/D Pressure: 117 / 77 Weight: 99.3kg ((218.5lb) ) BSA: 2.29m^2 Test start time: 10:20 AM. Test stop time: 11:15 AM. ORDERING China Kim V REFERRING China Kim V PERFORMING Unknown PERFORMING [facility] BARREL INSPECTOR TIGHT Essie Palomares, (R)(CT), RUST *PROCEDURE DATA* Procedure information: The patient was identified by two identifiers. This study was interpreted by [facility]. Pertinent images and digital data are archived for permanent storage and are available for subsequent review. Comparison was made to the study of 03/07/2007. Study status: Routine. Transthoracic echocardiography. M-mode, complete 2D, complete spectral Doppler, and color Doppler. A Transthoracic Echocardiogram was performed. Scanning was performed from the parasternal, apical, subcostal, and suprasternal notch acoustic windows. Images were obtained using an [id number] cardiac ultrasound machine. Image quality was adequate. Study completion: The patient tolerated the procedure well. History: PMH: Afib i48.91. *CARDIAC ANATOMY* Left ventricle: The cavity size was normal. Wall thickness was increased in a pattern of mild LVH. Systolic function was normal. The estimated ejection fraction was 60-65%. The tissue Doppler parameters were normal. Diastolic parameters were normal. There was no evidence of elevated ventricular filling pressure by Doppler parameters. Aortic valve: Trileaflet. Doppler: There was no stenosis. There was no regurgitation. VTI ratio of LVOT to aortic valve: 0.79. Valve area (VTI): 2.5cm^2. Indexed valve area (VTI): 1.1cm^2/m^2. Peak velocity ratio of LVOT to aortic valve: 0.82. Valve area (Vmax): 2.7cm^2. Indexed valve area (Vmax): 1.2cm^2/m^2. Mean velocity ratio of LVOT to aortic valve: 0.83. Valve area (Vmean): 2.7cm^2. Indexed valve area (Vmean): 1.2cm^2/m^2. Mean gradient (S): 2.9mm Hg. Peak gradient (S): 4.4mm Hg. Aorta: Aortic root: The aortic root was normal in size. Ascending aorta: The ascending aorta was moderately dilated. Mitral valve: Doppler: There was no evidence for stenosis. There was moderate regurgitation. Valve area by pressure half-time: 5.7cm^2. Indexed valve area by pressure half-time: 2.5cm^2/m^2. Peak gradient (D): 3.3mm Hg. Left atrium: The atrium was mildly dilated. Atrial septum: No defect or patent foramen ovale was identified. Right ventricle: The cavity size was normal. Wall thickness was normal. Systolic function was normal. Pulmonic valve: Doppler: There was no evidence for stenosis. There was no significant regurgitation. Peak gradient (S): 2mm Hg. Tricuspid valve: Doppler: There was mild regurgitation. Pulmonary artery: Poorly visualized. Pulmonary systolic pressure was in the range of 25mm Hg to 35mm Hg. Right atrium: The atrium was mildly dilated. Pericardium: There was no pericardial effusion. Systemic veins: Inferior vena cava: Well visualized. The vessel was patent and normal in size. The respirophasic diameter changes were in the normal range (greater than or equal to 50%), consistent with normal central venous pressure. Baseline ECG: Atrial fibrillation. Measurements Left ventricle Value Reference LV ID, ED, PLAX 5.1 cm 3.5 - 6.0 LV ID, ES, PLAX 3.7 cm 2.1 - 4.0 LV PW thickness, ED, PLAX 1.1 cm LV end-diastolic volume, 1-p A2C 91 ml LV ejection fraction, 1-p A2C 61 % LV end-diastolic volume, 1-p A4C 88 ml LV ejection fraction, 1-p A4C 55 % LV e', lateral 0.127 m/sec LV E/e', lateral 7 LV e', medial 0.079 m/sec LV E/e', medial 12 LV e', average 0.103 m/sec LV E/e', average 9 Ventricular septum Value Reference IVS thickness, ED, PLAX 1.2 cm LVOT Value Reference LVOT ID, A-P 2.0 cm LVOT area 3.2 cm^2 LVOT peak velocity, S 0.86 m/sec LVOT mean velocity, S 0.69 m/sec LVOT VTI, S 17.3 cm LVOT peak gradient, S 3 mm Hg LVOT mean gradient, S 2 mm Hg Stroke volume (SV), LVOT DP 56 ml Stroke index (SV/bsa), LVOT DP 24 ml/m^2 Aortic valve Value Reference Aortic valve peak velocity, S 1 m/sec Aortic valve mean velocity, S 0.83 m/sec Aortic valve VTI, S 22.0 cm Aortic mean gradient, S 2.9 mm Hg Aortic peak gradient, S 4.4 mm Hg VTI ratio, LVOT/AV 0.79 Aortic valve area, VTI 2.5 cm^2 Velocity ratio, peak, LVOT/AV 0.82 Aortic valve area, peak velocity 2.7 cm^2 Velocity ratio, mean, LVOT/AV 0.83 Aortic valve area, mean velocity 2.7 cm^2 Aortic valve area/bsa, mean velocity 1.2 cm^2/m^2 Aorta Value Reference Aortic root ID, ED 3.8 cm Ascending aorta ID, A-P, S 4.4 cm Left atrium Value Reference LA ID, A-P, ES 4.7 cm LA ID/bsa, A-P 2.0 cm/m^2 <=2.2 LA area, ES, A4C (H) 31 cm^2 8.8 - 23.4 LA area, ES, A2C 33 cm^2 LA volume/bsa, ES, 1-p A4C 52 ml/m^2 LA volume, ES, 2-p 115 ml LA volume/bsa, ES, 2-p 50 ml/m^2 LA/aortic root ratio 1.24 Mitral valve Value Reference Mitral E-wave peak velocity 0.91 m/sec Mitral deceleration time (L) 134 ms 150 - 230 Mitral pressure half-time 39 ms Mitral peak gradient, D 3.3 mm Hg Mitral valve area, PHT, DP 5.7 cm^2 Pulmonary veins Value Reference Pulmonary vein peak velocity, S 0.28 m/sec Pulmonary vein peak velocity, D 0.61 m/sec Pulmonary vein velocity ratio, peak, 0.46 S/D Tricuspid valve Value Reference Tricuspid regurg peak velocity 2.5 m/sec Tricuspid peak RV-RA gradient 24.8 mm Hg Right atrium Value Reference RA area, ES, A4C (H) 23.2 cm^2 8.3 - 19.5 Pulmonic valve Value Reference Pulmonic peak gradient, S 2 mm Hg Legend: (L) and (H) deya values outside specified reference range. I have personally reviewed the images and have reviewed and edited the reported findings. Electronically signed by Aníbal Hughes MD 11/30/2018 12:53
== END 2018-11-30 01:21 ==
PROVIDERS: PCP Family Medicine; Visit Provider Family Medicine
DX: I48.91 Unspecified atrial fibrillation (principal); I51.7 Cardiomegaly; I34.0 Nonrheumatic mitral (valve) insufficiency; I10 Essential (primary) hypertension; E78.5 Hyperlipidemia, unspecified
CPT/HCPCS: 93306

== ENCOUNTER 2019-11-06 13:06 | Outpatient (REF) | payer BC, SELFPAY ==
[2019-11-06 21:49] LABS: HCT 44.7 % (40.0-50.0); HGB 15.2 g/dL (13.5-17.5); Mean Corpuscular Hemoglobin 30.6 pg (27.0-33.0); Mean Corpuscular Volume 89.9 fL (80-95); Platelet Count 167 x1000/uL (130-400); RBC 4.97 m/cumm (4.50-6.00)
[2019-11-06 22:14] LABS: ALT 54 U/L (16-63); AST 25 U/L (15-37); Albumin 4.7 g/dL (3.4-5.0); Alkaline Phosphatase 54 U/L (46-116); Anion Gap 9.6 mmol/L (3-11); BUN 9 mg/dL (7-18); Bilirubin, Total 1.1 mg/dL (0.2-1.0); CO2 25.4 mmol/L (21.0-32.0); CREATININE 0.95 mg/dL (0.70-1.30); Calcium 9.3 mg/dL (8.5-10.1); Chloride 105 mmol/L (98-107); Glucose 86 mg/dL (74-106); Magnesium 2.1 mg/dL (1.8-2.4); Potassium 4.1 mmol/L (3.5-5.1); Sodium 140 mmol/L (136-145); TSH (W/Ref FT4) 0.05 uIU/mL (0.36-3.74); Total Protein 7.2 g/dL (6.4-8.2)
[2019-11-06 22:33] LABS: FREE T4 1.51 ng/dL (0.76-1.46)
== END 2019-11-06 13:26 ==
LOC: NCHCN 13:06
PROVIDERS: PCP Family Medicine; Visit Provider Family Medicine
DX: I48.91 Unspecified atrial fibrillation (principal); E87.6 Hypokalemia; E03.9 Hypothyroidism, unspecified; I10 Essential (primary) hypertension; Z79.899 Other long term (current) drug therapy
CPT/HCPCS: 80053; 85027; 83735; 84439; 84443

== ENCOUNTER 2020-05-09 14:45 | Outpatient (REF) | payer BC, SELFPAY ==
[2020-05-09 19:30] LABS: Calculated LDL 116 mg/dL (<100); Cholesterol 192 mg/dL (<200); HDL Cholesterol 45 mg/dL (40-60); TSH (W/Ref FT4) 0.21 uIU/mL (0.36-3.74); Triglyceride 155 mg/dL (<150)
[2020-05-09 20:02] LABS: FREE T4 1.35 ng/dL (0.76-1.46)
[2020-05-12 09:39] LABS: PSA, Screening 1.1 ng/mL (0.0-3.5)
== END 2020-05-09 15:05 ==
LOC: NCHCN 14:45
PROVIDERS: PCP Family Medicine; Visit Provider Family Medicine
DX: Z00.00 Encounter for general adult medical examination without abnormal findings (principal); Z13.29 Encounter for screening for other suspected endocrine disorder; Z13.220 Encounter for screening for lipoid disorders; Z12.5 Encounter for screening for malignant neoplasm of prostate
CPT/HCPCS: 80061; 84153; 84439; 84443

== ENCOUNTER 2021-03-31 10:56 | Outpatient (CLI) | payer BC, SELFPAY ==
--- NOTE | 2021-03-31 11:11 | DI.RAD_ITS ---
Exam(s) XR WRIST RT COMPLETE EXAM: XR WRIST RT COMPLETE CLINICAL HISTORY: RT WRIST JT PAIN, M25.531 TECHNIQUE: COMPARISON: No exams were available for comparison FINDINGS: Three views were obtained. Carpal alignment appears within normal limits. No bony or soft tissue ab normality seen. IMPRESSION: RADIATION DOSE DELIVERED: Total DLP
== END 2021-03-31 11:16 ==
PROVIDERS: PCP Family Medicine; Visit Provider Family Medicine
DX: M25.531 Pain in right wrist (principal)
CPT/HCPCS: 73110

== ENCOUNTER 2021-05-08 12:00 | Outpatient (REF) | payer BC, SELFPAY ==
[2021-05-08 19:13] LABS: HCT 47.6 % (40.0-50.0); HGB 15.7 g/dL (13.5-17.5); MCV 90.8 fL (80-95); MPV 12.1 fL (8.0-11.0); Platelet Count 185 10^3/uL (130-400); RBC 5.24 10^6/uL (4.36-5.78); RDW 12.1 % (11.8-14.1); RDW-SD 40.2 fL; WBC 7.22 10^3/uL (4.4-10.8)
[2021-05-08 19:28] LABS: ALT 49 U/L (16-63); AST 21 U/L (15-37); Albumin 4.4 g/dL (3.4-5.0); Alkaline Phosphatase 48 U/L (46-116); BUN 11 mg/dL (7-18); Bilirubin, Total 0.9 mg/dL (0.2-1.0); Calcium 9.4 mg/dL (8.5-10.1); Chloride 106 mmol/L (98-107); FREE T4 1.39 ng/dL (0.76-1.46); Glucose 100 mg/dL (74-106); Potassium 4.4 mmol/L (3.5-5.1); Sodium 141 mmol/L (136-145); Total Protein 7.1 g/dL (6.4-8.2)
== END 2021-05-08 12:01 | disposition home or self-care (01) ==
LOC: NCHCN 12:00
PROVIDERS: PCP Family Medicine; Visit Provider Family Medicine
DX: E03.9 Hypothyroidism, unspecified (principal); I10 Essential (primary) hypertension; I48.91 Unspecified atrial fibrillation
CPT/HCPCS: 80053; 85027; 84439

== ENCOUNTER 2022-06-21 10:47 | PSDC | payer BC, SELFPAY ==
[2022-06-21] VITALS (12 sets, daily range): BP systolic 115–149; BP diastolic 65–106; PULSE 58–71; RESP 12–18; TEMP 36.3–36.5; TEMPC 36.5; O2SAT 95–100; BMI 26.6
[2022-06-21] MEDS: Lactated Ringers 1,000 ML 80 ML IV (11:51)
[2022-06-21] MEDS: Acetaminophen 500 MG TAB 1000 MG PO (11:58)
[2022-06-21] MEDS: Celecoxib 200 MG CAP PO (11:59)
[2022-06-21] MEDS: Gabapentin 300 MG CAP 600 MG PO (11:59)
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
--- NOTE | 2022-06-21 12:40 | PDOC.DSDIS_ITS ---
Discharge Plan Disposition Patient Disposition: HOME Condition: Good Discharge Details Reason For Visit: INcarcerated right inguinal hernia Attending Provider: Shiv Epps Primary Care Provider: China Kim V Hospital Course Hospital Course: Ulisses is 56 years old and has an acute incarcerated right inguinal hernia. He was seen in the office today, moved over to the same-day surgery unit for emergency right inguinal hernia repair. Home Meds and New Rx's Prescriptions: Continued Xarelto 20 mg tablet 20 mg PO DAILY Rx Instructions: must administer with evening meal diltiazem HCl 240 mg capsule,extended release 24hr 240 mg PO DAILY rosuvastatin 10 mg tablet 10 mg PO DAILY losartan 50 MG tablet 50 mg PO DAILY levothyroxine 200 mcg Tablet 200 mcg PO DAILY acetaminophen [Tylenol] 325 mg Tablet 650 mg PO Q4H PRN PRNQty: 30 0RF ibuprofen [Advil] 200 mg Tablet 600 mg PO Q6H PRN PRNQty: 30 0RF Discharge Instructions Instructions: Inguinal Hernia Repair (DC) Additional Instructions: 1. Resume all of your medications. 2. Okay to use tylenol and ibuprofen over the counter as needed. 3. Use oxycodone as needed for pain. 4. Leave bandage in place for 48 hours, then remove. 5. Shower with warm soapy water. Pat dry. Use a bandaid if needed to protect your clothing. 6. No soaking or tub baths until I see you in the office. 7. No heavy lifting until I see you in the office. 8.Call the office (or go directly to the emergency room after hours) if you notice any of the following: Develop chills (warm to touch), or if you have a thermometer and your temperature is above 101 Difficulty breathing or difficultly swallowing Persistent vomiting Any bleeding ? exceeding one tablespoon 6. Call your physician if the site where your intravenous was started becomes red, swollen, painful, and warm to touch. Referrals: Shiv Epps MD [ [facility] STAFF PHYSICIAN] - Activity:: No lifting 10 lbs Remove Dressings/Wound Care:: 48 hours Shower/Bathe:: 48 hours Diet:: As Tolerated Discharge Orders Discharge Orders: Discharge Order (Routine); Ordered 06/21/22 Ordered By: Shiv Epps
--- NOTE | 2022-06-21 12:44 | W.PM.OP ---
Date of service: 06/21/22 Time of Service: 14:30 Operative Note Operative Note DATE OF PROCEDURE: 06/21/22 PRE-OP DIAGNOSIS: Incarcerated right inguinal hernia POST-OP DIAGNOSIS: same PROCEDURE: Open right inguinal herniorraphy with mesh SURGEON: Shiv Epps BELL NECK HAMMERER: Michelle Greer ANESTHESIA TYPE: Local By Surgeon and General LMA/ETT Refer to Anesthesia Record ESTIMATED BLOOD LOSS: 30 PATHOLOGY: none sent COMPLICATIONS: None Patient was transported to: PACU Patient's condition: stable Implants: Bard large patch and plug Indications: Incarcerated indirect inguinal hernia with inguinal floor weakness Procedure Description: I began by confirming the correct site with the patient. Patient was then inducted with general anesthesia. Surgical site was then prepped and draped in the usual fashion. I began by making an oblique incision over the right inguinal region. I dissected down through the skin to the deep fascia. Next, I incised the fascia along the length of the inguinal canal to the external ring. I then carefully identified the ilioinguinal nerve and retracted it cephalad. Once this was complete, I bluntly dissected the shelving edge of the inguinal ligament down towards the pubic tubercle. Here, I encircled all cord structures with a Flakito drain. Next, I began dissecting the specific cord structures. Great care was taken to spare the vas deferens and the blood supply to the testicle. Next, I isolated the hernia sac from the other inguinal structures. I reduced it back to its normal anatomic position. Next I examined the floor of the inguinal canal. It was quite attenuated, and I suspect that the patient was experiencing at least some component of a direct inguinal hernia as well. I then used a large mesh plug to obliterate the defect at the internal ring. I fixed in place with interrupted Prolene stitches. Next, I buttressed the posterior floor of the inguinal canal with a large mesh patch. I started by fixing it to the pubic tubercle. Next, I used Prolene sutures to affix it to the shelving edge of the inguinal ligament and the conjoined tendon. Laterally I tacked it to the transversalis fascia and reconstructed an internal ring without any strain on the cord structures. Once this was complete, I irrigated the surgical field. It appeared hemostatic. I then closed the anterior portion of the fascia to reconstruct the front wall of the inguinal canal. I did this with interrupted Vicryl stitches. Once again, I irrigated the surgical field and inspected for hemostasis. Finally, I approximated the superficial fascia and the deep layers of the skin with absorbable suture. Skin was closed with absorbable sutures. Bandages were applied, the patient was awakened and transferred to the recovery unit.
[2022-06-21] MEDS: Bupivacaine 0.5% Pres-Free W/EPI 10 ML VIAL (13:27)
[2022-06-21] MEDS: Ketorolac 15 MG/ML VIAL IVP (14:53)
[2022-06-21] MEDS: HYDROmorphone 2 MG/ML SYR IVP ×2 (15:07→15:24)
[2022-06-21] MEDS: Normal Saline 10 ML VIAL IJ (15:07)
--- NOTE | 2022-06-21 15:14 | W.ANESPOSTOP ---
Postoperative Evaluation Date, Time and Location Date Performed: 06/21/22 Time Performed: 15:14 Patient Location: PACU Vital Signs Most Recent Imported Vital Signs: Most Recent Vital Signs Temp Pulse Resp BP Pulse Ox 36.5 C 62 16 115/81 97 06/21/22 14:40 06/21/22 14:54 06/21/22 14:54 06/21/22 14:54 06/21/22 14:54 Most Recent Manually Entered Vital Signs: Adult Blood Pressure: 135/94 Heart Rate: 60 Respirations: 13 Oxygen Saturation (%): 99 Temperature (C): 36.5 C Pain Score (0-10 Scale): 2 Pain Score Most Recent Pain Score: Most Recent Pain Score Pain Level 0 06/21/22 14:54 Assessment Mental Status: Awake (Alert & Oriented to Patient Baseline) Airway and Respiratory Function: Patent airway with normal (patient baseline) respiratory exam Cardiovascular Function: Hemodynamically Stable Hydration Status: Adequately Hydrated Nausea & Vomiting: No Nausea or Vomiting Pain: Pt. Denies Any Pain Peripheral Nerve Block: Patient did not receive a nerve block
--- NOTE | 2022-06-21 17:03 | NUR.NOTE ---
1650: Pt. did void prior to changing in BR with 's assistance. Pt. left urine in toilet for this nurse to see. Pt. denied bladder discomfort after voiding, states it was coming out goodNursing Note:
== END 2022-06-21 14:54 | disposition home or self-care (01) ==
PROVIDERS: PCP Family Medicine; Visit Provider Surgery
PROC: 0YU50JZ Supplement Right Inguinal Region with Synthetic Substitute, Open Approach (ICD-10-PCS; CPT 49507; principal; 2022-06-21 13:00)
DX: K40.30 Unilateral inguinal hernia, with obstruction, without gangrene, not specified as recurrent (principal); I48.91 Unspecified atrial fibrillation; I10 Essential (primary) hypertension
CPT/HCPCS: 49507; C1781; J0690; J1100; J1170; J1885; J2250; J2370; J2405; J2704; J3010

== ENCOUNTER 2022-07-09 14:48 | Outpatient (REF) | payer BC, SELFPAY ==
[2022-07-09 20:25] LABS: ALT 39 U/L (16-63); AST 19 U/L (15-37); Albumin 4.2 g/dL (3.4-5.0); Alkaline Phosphatase 59 U/L (46-116); Anion Gap 8.1 mmol/L (3-11); BUN 13 mg/dL (7-18); Bilirubin, Total 0.7 mg/dL (0.2-1.0); CO2 26.9 mmol/L (21.0-32.0); CREATININE 1.1 mg/dL (0.70-1.30); Calcium 9.3 mg/dL (8.5-10.1); Calculated LDL 83 mg/dL (<100); Chloride 107 mmol/L (98-107); Cholesterol 155 mg/dL (<200); Creatine Kinase 70 U/L (39-308); Estimated GFR 77.81 (mL/min/1.73m2); Glucose 85 mg/dL (74-106); HDL Cholesterol 55 mg/dL (40-60); Potassium 4.2 mmol/L (3.5-5.1); Sodium 142 mmol/L (136-145); TSH 0.02 uIU/mL (0.36-3.74); Total Protein 6.8 g/dL (6.4-8.2); Triglyceride 85 mg/dL (<150)
[2022-07-09 20:42] LABS: FREE T4 1.31 ng/dL (0.76-1.46)
== END 2022-07-09 14:49 | disposition home or self-care (01) ==
LOC: NCHCN 14:48
PROVIDERS: PCP Family Medicine; Visit Provider Family Medicine
DX: I10 Essential (primary) hypertension (principal); E78.5 Hyperlipidemia, unspecified; Z79.01 Long term (current) use of anticoagulants; E03.9 Hypothyroidism, unspecified
CPT/HCPCS: 80053; 80061; 82550; 84439; 84443

== ENCOUNTER 2023-05-17 16:55 | Outpatient (REF) | payer BC, SELFPAY ==
[2023-05-17 21:23] LABS: TSH (W/Ref FT4) 0.02 uIU/mL (0.36-3.74)
[2023-05-17 22:01] LABS: FREE T4 1.47 ng/dL (0.76-1.46)
[2023-05-18 19:12] LABS: PSA, Diagnostic 1.8 ng/mL (<=3.5)
== END 2023-05-17 16:56 | disposition home or self-care (01) ==
LOC: NCHCN 16:55
PROVIDERS: PCP Family Medicine; Visit Provider Family Medicine
DX: Z00.00 Encounter for general adult medical examination without abnormal findings (principal); E03.9 Hypothyroidism, unspecified; R35.0 Frequency of micturition
CPT/HCPCS: 84153; 84439; 84443

== ENCOUNTER 2023-08-05 14:14 | Outpatient (REF) | payer BC, SELFPAY ==
[2023-08-05 16:16] LABS: FREE T4 1.46 ng/dL (0.76-1.46); TSH 0.02 uIU/mL (0.36-3.74)
== END 2023-08-05 14:15 | disposition home or self-care (01) ==
LOC: NCHCN 14:14
PROVIDERS: PCP Family Medicine; Visit Provider Family Medicine
DX: E03.9 Hypothyroidism, unspecified (principal)
CPT/HCPCS: 84439; 84443

== ENCOUNTER 2023-12-02 16:40 | Outpatient (REF) | payer BC, SELFPAY ==
[2023-12-02 15:23] LABS: HCT 47.9 % (40.0-50.0); HGB 16.1 g/dL (13.5-17.5); MCH 30.1 pg (27.0-33.0); MCHC 33.6 % (32.0-36.0); MCV 90 fL (80-95); MPV 12.3 fL (8.0-11.0); Platelet Count 187 10^3/uL (130-400); RBC 5.35 10^6/uL (4.36-5.78); RDW 12.5 % (11.8-14.1); RDW-SD 41.2 fL; WBC 6.06 10^3/uL (4.4-10.8)
[2023-12-02 15:45] LABS: ALT 36 U/L (16-63); AST 24 U/L (15-37); Albumin 4.5 g/dL (3.4-5.0); Alkaline Phosphatase 59 U/L (46-116); Anion Gap 10.7 mmol/L (3-11); BUN 11 mg/dL (7-18); CO2 24.3 mmol/L (21.0-32.0); CREATININE 1.2 mg/dL (0.70-1.30); Calcium 9.6 mg/dL (8.5-10.1); Chloride 104 mmol/L (98-107); Estimated GFR 69.23 (mL/min/1.73m2); FREE T4 1.34 ng/dL (0.76-1.46); Glucose 102 mg/dL (74-106); Potassium 4.2 mmol/L (3.5-5.1); Sodium 139 mmol/L (136-145); Total Protein 7.6 g/dL (6.4-8.2)
== END 2023-12-02 16:41 | disposition home or self-care (01) ==
LOC: NCHCN 16:40
PROVIDERS: PCP Family Medicine; Referring Provider Family Medicine; Visit Provider Family Medicine
DX: I10 Essential (primary) hypertension (principal); E03.9 Hypothyroidism, unspecified; H01.006 Unspecified blepharitis left eye, unspecified eyelid
CPT/HCPCS: 80053; 85027; 87077; 84439; 87070; 87186; 87205

== ENCOUNTER 2025-04-26 18:03 | Outpatient (REF) | payer BC, SELFPAY ==
[2025-04-26 19:11] LABS: HCT 46.8 % (40.0-50.0); HGB 15.4 g/dL (13.5-17.5); MCH 30.1 pg (27.0-33.0); MCHC 32.9 % (32.0-36.0); MCV 91 fL (80-95); MPV 11.9 fL (8.0-11.0); Platelet Count 198 10^3/uL (130-400); RBC 5.12 10^6/uL (4.36-5.78); RDW 12.9 % (11.8-14.1); RDW-SD 43.3 fL; WBC 7.07 10^3/uL (4.4-10.8)
[2025-04-26 19:28] LABS: ALT 43 U/L (16-63); AST 29 U/L (15-37); Albumin 4.6 g/dL (3.4-5.0); Alkaline Phosphatase 59 U/L (46-116); Anion Gap 9.1 mmol/L (3-11); BUN 11 mg/dL (7-18); Bilirubin, Total 1.6 mg/dL (0.2-1.0); CO2 26.9 mmol/L (21.0-32.0); Calcium 9.7 mg/dL (8.5-10.1); Calculated LDL 70 mg/dL (<100); Chloride 102 mmol/L (98-107); Cholesterol 148 mg/dL (<200); Estimated GFR 85.63 (mL/min/1.73m2); Glucose 90 mg/dL (74-106); HDL Cholesterol 57 mg/dL (>or=40); Potassium 4.3 mmol/L (3.5-5.1); Sodium 138 mmol/L (136-145); TSH (W/Ref FT4) 0.05 uIU/mL (0.36-3.74); Total Protein 7.5 g/dL (6.4-8.2); Triglyceride 109 mg/dL (<150)
[2025-04-29 10:28] LABS: PSA, Diagnostic 2.0 ng/mL (<=4.5)
== END 2025-04-26 18:04 | disposition home or self-care (01) ==
LOC: NCHCN 18:03
PROVIDERS: PCP Family Medicine; Visit Provider Family Medicine
DX: Z00.00 Encounter for general adult medical examination without abnormal findings (principal); I10 Essential (primary) hypertension; E03.9 Hypothyroidism, unspecified; E78.5 Hyperlipidemia, unspecified
CPT/HCPCS: 80053; 80061; 85027; 84153; 84439; 84443

== ENCOUNTER 2025-05-17 12:39 | Outpatient (CLI) | payer BC, SELFPAY ==
[2025-05-20 10:55] LABS: Lyme Ab w Rflx to Lyme Confirm Negative (Negative)
== END 2025-05-17 12:40 | disposition home or self-care (01) ==
LOC: LBO 12:39
PROVIDERS: PCP Family Medicine; Visit Provider Physician Assistant Medical
DX: M25.531 Pain in right wrist (principal)
CPT/HCPCS: 36415; 86618

== ENCOUNTER 2025-05-17 15:06 | Outpatient (CLI) | payer BC, SELFPAY ==
--- NOTE | 2025-05-17 10:59 | DI.RAD_ITS ---
Exam(s) XR WRIST RT COMPLETE EXAM: XR WRIST RT COMPLETE CLINICAL HISTORY: Pain in rt wrist, M25.531. TECHNIQUE: 2D digital imaging was performed. Three views. COMPARISON: No exams were available for comparison FINDINGS: BONES: No acute fracture is present. No bony destructive lesion is seen. JOINTS: The carpal bones are normally aligned. There are mild degenerative changes at the 1st carpal metacarpal joint. SOFT TISSUE: Soft tissue swelling near the ulnar styloid. No foreign body or abnormal gas collection. No calcifications. IMPRESSION: Swelling around the ulnar styloid. DATA REPOSITORY: RADIATION DOSE DELIVERED:
== END 2025-05-17 15:26 ==
LOC: DI 15:06
PROVIDERS: PCP Family Medicine; Visit Provider Physician Assistant Medical
DX: M25.531 Pain in right wrist (principal)
CPT/HCPCS: 73110

== ENCOUNTER 2025-05-24 14:02 | Outpatient (CLI) | payer BC, SELFPAY ==
[2025-05-24 11:02] LABS: Uric Acid 4.7 mg/dL (3.5-7.2)
== END 2025-05-24 14:03 | disposition home or self-care (01) ==
LOC: LBO 14:02
PROVIDERS: PCP Family Medicine; Visit Provider Family Medicine
DX: Z87.39 Personal history of other diseases of the musculoskeletal system and connective tissue (principal); Z09 Encounter for follow-up examination after completed treatment for conditions other than malignant neoplasm
CPT/HCPCS: 36415; 84550; 86431